=== PATIENT | female | born 1985 | race Hispanic/Latino ===

== ENCOUNTER 2020-01-08 14:13 | Emergency (ER) | payer OTHER ==
[~2020-01-08] VITALS: Ht 157.5 cm; Wt 64.0 kg
[2020-01-08] MEDS ORDERED: MECLIZINE HCL 12.5 MG TAB PO ONE (15:00)
[2020-01-08] MEDS ORDERED: MECLIZINE HCL 12.5 MG TAB ONE (15:17)
[2020-01-08 15:34] VITALS: BP 114/71
[2020-01-08] MEDS ORDERED: MACROBID 100 M100 MG PO (16:02)
[2020-01-08] MEDS ORDERED: MECLIZINE HCL12.5 MG PO (16:03)
== END 2020-01-08 16:15 | disposition home or self-care (01) ==
LOC: FSED 14:13
DX: H81.12 Benign paroxysmal vertigo, left ear (principal); N30.90 Cystitis, unspecified without hematuria
CPT/HCPCS: 93005; 99284; J8597